=== PATIENT | female | born 1960 | race Caucasian/White ===

== ENCOUNTER → 2016-10-30 | Outpatient (CLI) | payer OTHER ==
--- NOTE | ~2016-10-30 | CR63 ---
[facility] A Service of [facility] & [facility] RADIOLOGY TEXT RESULTS PATIENT: MARIELLA JORDAN LOCATION: [facility] : 58 UNIT #: [id number] AGE: [address]: ANGELITO LYNN APRN SEX: F ORDER DR: [id number] [facility] [address] [place], [place] [address] [id number] O MR#: [id number] Acc #: [id number] NAME: MARIELLA JORDAN : 1960 SEX: F STUDY DATE/TIME: 10/30/2016 13:02 UNIT: [facility] ROOM: STUDY DESCRIPTION: CR Chest 2 View Attending Physician: Angelito Lynn Ordering Physician: Physician Non-Staff MEDICAL IMAGING REPORT This report is preliminary unless electronic signature is present EXAM Two-view chest, 10/30/2016 HISTORY Shortness of air for 4 days. Bronchitis. Essential hypertension. COMPARISON STUDIES None. FINDINGS Two views of the chest demonstrate clear lungs. No pleural effusion or pneumothorax. Heart size and mediastinum are normal. Pulmonary vasculature unremarkable. IMPRESSION No acute cardiopulmonary findings Dictated by... Hang Whitehead M.D. THIS IS AN ELECTRONICALLY VERIFIED REPORT Hang Whitehead M.D. at 11/01/2016 8:39 AM Veto TD: 10/31/2016 20:11 JOB #: [id number] MEDICAL IMAGING REPORT Page 1 of 1 COPY
== END | disposition home or self-care (01) ==
LOC: CRAD 12:47
DX: J40 Bronchitis, not specified as acute or chronic (principal)
CPT/HCPCS: 71020